=== PATIENT | male | born 1985 | race Caucasian/White ===

== ENCOUNTER 2017-01-21 07:03 | Day surgery (SDC) | payer OTHER ==
[2017-01-20 11:48] VITALS: BMI 30.8
[2017-01-21] MEDS ORDERED: Fentanyl 250 MCG/5 ML VIAL ONE (07:31)
[2017-01-21] MEDS ORDERED: Midazolam HCl 2 mg/2 ml Vial ONE ×2 (07:31→08:31)
[2017-01-21] MEDS ORDERED: Lidocaine 4% Topical Sol 50 ML BOT ONE (07:32)
[2017-01-21] MEDS ORDERED: Oxymetazoline HCl 0.05% ( 15 ML ) ONE (07:52)
[2017-01-21] MEDS ORDERED: Lidocaine 1% w/Epinephrine 1:200K 30 ML VIAL ONE (09:11)
[2017-01-21] MEDS ORDERED: Propofol 200 MG/20 ML VIAL ONE (10:00)
[2017-01-21] MEDS ORDERED: Lidocaine 1% PF 5 ML VIAL ONE (10:00)
[2017-01-21] MEDS ORDERED: Succinylcholine Chloride 20 MG/ML 10 ml SYRINGE FS ONE (10:00)
[2017-01-21] MEDS ORDERED: Dexamethasone 20 MG/5 ML VIAL ONE (10:00)
[2017-01-21] MEDS ORDERED: Ondansetron HCl/PF 4 MG/2 ML Vial ONE (10:00)
[2017-01-21] MEDS ORDERED: Fentanyl 100 MCG/2 ML VIAL ONE ×2 (11:01→11:25)
[2017-01-21] MEDS ORDERED: Non-Formulary Medication 1 EACH PO PRN (11:11)
[2017-01-21] MEDS ORDERED: HYDROmorphone 2 MG/ML VIAL SLOW IVP PRN (11:11)
[2017-01-21] MEDS ORDERED: Ondansetron HCl/PF 4 MG/2 ML Vial IVP PRN (11:11)
[2017-01-21] MEDS ORDERED: Promethazine HCl 25 MG/ML VIAL IM/IV PRN (11:11)
[2017-01-21] MEDS ORDERED: Hydrocodone-Acetamin 15 ML UDCUP ONE (12:32)
--- NOTE | 2017-01-21 16:23 | OP ---
DATE OF PROCEDURE: 01/21/2017 PREOPERATIVE DIAGNOSES: 1. Closed nasal fracture. 2. Nasal septal deviation/fracture. 3. Bilateral inferior turbinate hypertrophy. POSTOPERATIVE DIAGNOSES: 1. Closed nasal fracture. 2. Nasal septal deviation/fracture. 3. Bilateral inferior turbinate hypertrophy. PROCEDURES: 1. Nasal septoplasty. 2. Bilateral inferior turbinate submucosal resection. 3. Closed reduction nasal fracture. SURGEON: Dr. Otto Cho. EBL: 20 mL. COMPLICATIONS: None. ANESTHESIA: GETA. PROCEDURE IN DETAIL: Patient was taken to the operating room and placed supine on the table. Gener al endotracheal anesthesia was obtained by the Anesthesia staff. Tube was secured in the left lower lip. Patient was then placed in the beach chair position, and Afrin pledgets were placed in the na neil cavity. Injections of 1% lidocaine with 1:100,000 epinephrine were made into the nasal septum a s well as the inferior turbinates. Patient was then prepped and draped in standard surgical fashion for nasal surgery. Following this, the Afrin pledgets were removed. A [place] incision was made o n the left nasal septum. Submucoperichondrial dissection was performed. The deviated portions of t he septum included portions of the cartilage and the bony septum. These isolated areas were removed using three cutting rongeurs. There was noted to be a large dorsal and caudal strut, left intact f or support of the nose. The mucoperichondrial flaps were then reapproximated using a 4-0 gut stitch. Any straight pieces of car tilage were crushed prior to this and placed between the mucoperichondrial flaps. Following this, t he inferior turbinates were then punctured with a submucosal coblation wand, and submucosal coblatio ns were performed of multiple areas of the inferior portion of the anterior inferior turbinate. Ple ase note the submucosal microdebrider was used to submucosally resect the anterior and inferior port ions of the inferior turbinates bilaterally. Following this, the nasal bones were mobilized using a blunt [place] elevator and external pressure. Nasal bones were then replaced to their normal symmetr ic position. [place] splints were then placed and secured internally and an external [place] splint wa s placed and secured. The patient tolerated the procedure well.
== END 2017-01-21 12:53 | disposition home or self-care (01) ==
LOC: SDC 07:03
PROVIDERS: ATTEND Otolaryngology Plastic Surgery within the Head & Neck
PROC: 0NSBXZZ Reposition Nasal Bone, External Approach (ICD-10-PCS; principal; 2017-01-21)
PROC: 09BM0ZZ Excision of Nasal Septum, Open Approach (ICD-10-PCS; principal; 2017-01-21)
DX: S02.2XXA Fracture of nasal bones, initial encounter for closed fracture (principal); J34.2 Deviated nasal septum; W19.XXXA Unspecified fall, initial encounter; Y92.010 Kitchen of single-family (private) house as the place of occurrence of the external cause
CPT/HCPCS: 96374; J0131; J1100; J2001; J2250; J2405; J2704; J3010